=== PATIENT | male | born 1950 | race Caucasian/White ===

== ENCOUNTER 2021-04-27 19:21 | Observation (INO) ==
[2021-04-27] MEDS ORDERED: Ondansetron 4 MG/2 ML VIAL IVP PRN (23:45)
[2021-04-27] MEDS ORDERED: Melatonin 3 MG TABLET PO PRN (23:45)
[2021-04-27] MEDS ORDERED: Ketorolac 15 MG/ML VIAL IVP PRN (23:45)
[2021-04-27] MEDS ORDERED: 0.9 % Sodium Chloride 1,000 ML IVC SCH (23:45)
[2021-04-27] MEDS ORDERED: Naloxone 0.4 MG/ML INJ IVP PRN (23:45)
[2021-04-28 06:03] LABS: Hematocrit 42.3 % (37.5-50.1); Hemoglobin 13.7 g/dL (12.9-16.9); Mean Corpuscular HGB Conc 32.4 g/dL (31.6-35.5); Mean Corpuscular Hemoglobin 28.2 pg (28.0-33.3); Mean Corpuscular Volume 87.2 fL (83.0-100.0); Mean Platelet Volume 10.8 fL (9.4-12.4); Platelet Count 183 K/mcL (140-400); Red Blood Count 4.85 M/mcL (4.19-5.50); Red Cell Distribution Width 15.4 % (11.5-14.5); White Blood Count 7.7 K/mcL (4.3-11.1)
[2021-04-28 06:24] LABS: BUN/Creatinine Ratio 15 (6-26); Blood Urea Nitrogen 12 mg/dL (8-23); Carbon Dioxide 24 mEq/L (23-29); Chloride 110 mEq/L (98-107); Glucose 101 mg/dL (70-105); Osmolality,Calculated 290 (280-300); Potassium 3.6 mEq/L (3.5-5.1); Sodium 140 mEq/L (136-145); eGFR For African Americans > 60 (> 60); eGFR For Non-African Americans > 60 (> 60)
[2021-04-28] MEDS ORDERED: Ondansetron 4 MG/2 ML VIAL ONE (07:51)
[2021-04-28] MEDS ORDERED: *HR* Succinylcholine 200 MG/10 ML VIAL IVP ONE (07:51)
[2021-04-28] MEDS ORDERED: *HR* Propofol 200 MG/20 ML VIAL IVP ONE (07:51)
[2021-04-28] MEDS ORDERED: *HR* FentaNYL (PF) 100 MCG/2 ML VIAL ONE (07:51)
[2021-04-28] MEDS ORDERED: Lidocaine -MPF 2% 2 ML VIAL ONE (07:51)
[2021-04-28] MEDS ORDERED: ceFAZolin 2,000 MG in Water for inj. (sterile) 20 ML IVP ONE (07:55)
[2021-04-28] MEDS ORDERED: Isovue-300 50ML VIAL ONE (08:00)
[2021-04-28] MEDS ORDERED: Lidocaine HCL 4 ML Topical Solution (Laryng-O-Jet Kit Sterile Pak) TP ONE (08:23)
[2021-04-28] MEDS ORDERED: *HR* FentaNYL (PF) 100 MCG/2 ML VIAL IVP PRN (08:24)
[2021-04-28] MEDS ORDERED: Albuterol 2.5 MG/3 ML NEBULIZER IH PRN ×2 (08:24→10:47)
[2021-04-28] MEDS ORDERED: Nitroglycerin 0.4 MG TAB.SUBL SL PRN (08:24)
[2021-04-28] MEDS ORDERED: *HR* HYDROmorphone (PF) 1 MG/ML SYRINGE IVP PRN (08:24)
[2021-04-28] MEDS ORDERED: Naloxone 0.4 MG/ML INJ IVP PRN ×2 (08:24→10:47)
[2021-04-28] MEDS ORDERED: Ondansetron 4 MG/2 ML VIAL IVP PRN ×2 (08:24→10:47)
[2021-04-28] MEDS ORDERED: EPHEDrine 50 MG/ML VIAL ONE (08:50)
[2021-04-28] MEDS ORDERED: Ketorolac 30 MG/ML VIAL ONE (09:04)
[2021-04-28 10:20] LABS: Calcium 8.1 mg/dL (8.6-10.3)
[2021-04-28] MEDS ORDERED: SOTALOL HCL 120 MG PO SCH (10:45)
[2021-04-28] MEDS ORDERED: Venlafaxine XR (24 HR) 75 MG CAP.ER.24H PO SCH (10:45)
[2021-04-28] MEDS ORDERED: 0.9 % Sodium Chloride 1,000 ML IVC SCH (10:47)
[2021-04-28] MEDS ORDERED: Melatonin 3 MG TABLET PO PRN (10:47)
[2021-04-28] MEDS ORDERED: Ketorolac 15 MG/ML VIAL IVP PRN (10:47)
[2021-04-28 12:06] VITALS: TEMP 97.9
[2021-04-28 14:16] VITALS: BP 125/71; PULSE 49
[2021-04-28 14:17] VITALS: O2SAT 91
[2021-04-28] MEDS ORDERED: Acetaminophen 325 MG TABLET PO SCH (16:00)
[2021-04-28] MEDS ORDERED: ACETAMINOPHEN 650 MG PO SCH (16:00)
[2021-04-28] MEDS ORDERED: Gabapentin 400 MG CAPSULE PO SCH ×2 (21:00)
[2021-04-28] MEDS ORDERED: Apixaban 5 MG TABLET PO SCH ×2 (21:00)
[2021-04-28] MEDS ORDERED: Finasteride 5 MG TABLET PO SCH (21:00)
[2021-04-29] MEDS ORDERED: Venlafaxine XR (24 HR) 37.5 MG CAP.ER.24H PO SCH (09:00)
[2021-04-29] MEDS ORDERED: lisinopriL 10 MG TABLET PO SCH ×2 (09:00)
[2021-04-29] MEDS ORDERED: Finasteride 5 MG TABLET PO SCH (09:00)
[2021-05-03 17:10] LABS: Calculi Mass 53 mg
== END 2021-04-28 14:46 | disposition home or self-care (01) ==
LOC: 3BNU → SUATTDRO 22:28
PROVIDERS: ADMIT Student in an Organized Health Care Education/Training Program; ATTEND Internal Medicine